=== PATIENT | female | born 1950 | race Caucasian/White ===

== ENCOUNTER → 2016-03-19 | Outpatient (CLI) | payer MEDICAID ==
[~2016-03-19] MED LIST: 00186-0370-20 IH; ANTIVERT 12.512.5 MG PO; ASPIRIN 81M81 MG/TA2 PO; ASPIRIN E.C. 8181 MG PO; BYSTOLIC10 MG PO; CARAFATE 1GM1 G PO; CLARITIN 1010 MG/TAB PO; CLARITIN10 MG PO; COREG 25MG25 MG/TAB PO; COREG CR10 MG PO; COZAAR 50MG50 MG/TAB PO; DEMADEX 20MG20 M1 PO; DESYREL 50MG50 MG PO; FLEXERIL 1010 MG/TAB PO; GLIPIZIDE10 MG PO; GLUCOPHAGE1000 MG PO; GLUCOTROL XL2.5 MG PO; GLYCOLAX17 GM/PACK PO; GYNODIOL1 MG PO; INDOCIN25 MG PO; JANUVIA 100MG100 MG PO; K-DUR 10 MEQ T10 MEQ PO; KLOR-CON M2020 MEQ PO; LASIX 20MG TABL20 MG PO; LASIX 40MG TABL40 MG PO; LEVEMIR FLEXPEN SC; LEVEMIR FLEXPEN SQ; LEVEMIR100 U/ML SC; LEVOTHYROXINE0.1 MG PO; LEVOXYL0.1 MG PO; LIPITOR 10MG10 MG PO; LOPRESSOR 550 MG/TAB PO; METFORMIN1000 MG PO; METOPROLOL50 MG PO; MIDAMOR 5MG TAB5 MG PO; MYCOSTATIN100000 U/1 TP; NITROSTAT0.4 MG/TAB SL; NORCO 325 MG-51 TAB PO; NORCO 325 MG-7.1 TAB PO; NORVASC 5MG5 MG/TAB PO; NYSTATIN CREAM15 GM TP; PERCOCET 325 MG1 TA2 PO; PERCR 7.5 PO; PREDNISONE10 MG PO; PREDNISONE20 MG PO; PREVACID 30MG30 M1 PO; PREVACID SOLUTA30 M2 PO; PRILOSEC20 MG PO; PRINIVIL10 MG PO; PROAIR HFA0.09 MG/AC IH; PROVENTIL0.09 MG/A1 IH; PROVERA 2.5MG2.5 MG PO; SEPTRA DS 8001 TAB PO; SYNTHROID0.1 MG/TAB PO; TRIAMTERENE AND1 TAB PO; VENTOLIN0.09 MG IH; ZITHROMAX Z PA250 MG PO; ZOCOR 20MG20 MG PO; ZOFRAN 4MG T4 MG/TAB PO; ZYLOPRIM 300MG300 MG; ZYLOPRIM 300MG300 MG PO; ZYRTEC 10MG10 MG PO; [UNRECOGNIZED DRUG - REMARK] PO
== END ==
LOC: COL.RAD 08:15
DX: N18.3 Chronic kidney disease, stage 3 (moderate) (principal)

== ENCOUNTER 2016-04-25 02:00 | Emergency (ER) | payer MEDICAID ==
[~2016-04-25] VITALS: Ht 154.9 cm; Wt 136.4 kg
[2016-04-25 02:03] VITALS: TEMP 99.1
[2016-04-25 02:45] LABS: BASO % 0.3 % (0.0-2.0); EOS % 0.2 % (0-4.0); GRAN % 69.2 % (42.2-75.2); LYMPH # 1.1 (1.2-3.4); LYMPH % 18.8 % (20.0-51.0); MEAN CELL VOLUME 93 fl (80.0-100.0); MEAN CORPUSCULAR HGB CONC 33 g/dl (33.0-37.0); MEAN PLATELET VOLUME 9.7 fl (7.4-10.4); MONO # 0.6 (0.1-0.6); MONO % 10.8 % (1.7-9.3); PLATELET COUNT 99 K/mm3 (130-400); RED BLOOD COUNT 3.84 M/mm3 (4.10-5.30); REDCELL DISTRIBUTION WIDTH-CV 14.6 % (11.5-14.5); WHITE BLOOD COUNT 5.8 K/mm3 (4.8-10.8)
[2016-04-25 02:52] LABS: INFLUENZA B NEGATIVE
[2016-04-25 02:52] LABS: HEMATOCRIT 35.7 % (37.0-47.0); HEMOGLOBIN 11.8 g/dl (12.5-16.0); MEAN CORPUSCULAR HEMOGLOBIN 31 pg (27.0-31.0)
[2016-04-25 02:55] LABS: ADJUSTED CALCIUM 9.2 mg/dL (8.4-10.2); ALBUMIN 3.8 gm/dL (3.5-5.0); CREATININE, serum 1.63 mg/dL (0.52-1.25); POTASSIUM 3.8 mmol/L (3.4-5.0)
[2016-04-25 03:27] VITALS: BP 144/80; PULSE 85
== END 2016-04-25 03:27 | disposition home or self-care (01) ==
LOC: COL.ER 02:00
PROVIDERS: Nurse Practitioner
DX: J44.9 Chronic obstructive pulmonary disease, unspecified (principal); J45.909 Unspecified asthma, uncomplicated; E11.9 Type 2 diabetes mellitus without complications; Z79.4 Long term (current) use of insulin; I11.0 Hypertensive heart disease with heart failure; I50.9 Heart failure, unspecified; Z87.891 Personal history of nicotine dependence

== ENCOUNTER 2016-05-20 14:41 | Emergency (ER) | payer MEDICARE, MEDICAID ==
[~2016-05-20] VITALS: Ht 157.5 cm; Wt 129.5 kg
[2016-05-20 14:52] VITALS: TEMP 98.2
[2016-05-20 15:59] LABS: BASO % 0.5 % (0.0-2.0); EOS % 0.2 % (0-4.0); GRAN # 4.5 (1.4-6.5); LYMPH # 1.2 (1.2-3.4); LYMPH % 19.4 % (20.0-51.0); MEAN CELL VOLUME 93 fl (80.0-100.0); MEAN CORPUSCULAR HGB CONC 34 g/dl (33.0-37.0); MONO # 0.5 (0.1-0.6); MONO % 8.4 % (1.7-9.3); PLATELET COUNT 103 K/mm3 (130-400); RED BLOOD COUNT 3.74 M/mm3 (4.10-5.30); REDCELL DISTRIBUTION WIDTH-CV 14.6 % (11.5-14.5); WHITE BLOOD COUNT 6.3 K/mm3 (4.8-10.8)
[2016-05-20 16:00] LABS: HEMATOCRIT 34.9 % (37.0-47.0); HEMOGLOBIN 11.7 g/dl (12.5-16.0); MEAN CORPUSCULAR HEMOGLOBIN 31 pg (27.0-31.0)
[2016-05-20 16:09] LABS: CREATININE, serum 1.85 mg/dL (0.52-1.25); POTASSIUM 3.3 mmol/L (3.4-5.0)
[2016-05-20 18:12] VITALS: BP 128/57; PULSE 75
== END 2016-05-20 18:05 | disposition home or self-care (01) ==
LOC: COL.ER 14:41
PROVIDERS: Emergency Medicine
DX: M48.02 Spinal stenosis, cervical region (principal); F41.9 Anxiety disorder, unspecified; E87.6 Hypokalemia; E11.9 Type 2 diabetes mellitus without complications; I10 Essential (primary) hypertension; Z79.4 Long term (current) use of insulin; Z87.891 Personal history of nicotine dependence
CPT/HCPCS: J1170; J2060; J2765; J7030

== ENCOUNTER → 2016-06-14 | Outpatient (CLI) | payer MEDICARE, MEDICAID | LOC: MC.RAD 13:31 | DX: Z53.9 Procedure and treatment not carried out, unspecified reason (principal) ==

== ENCOUNTER → 2016-06-21 | Outpatient (CLI) | payer MEDICARE, MEDICAID | LOC: MC.RAD 11:32 | DX: Z12.31 Encounter for screening mammogram for malignant neoplasm of breast (principal) ==

== ENCOUNTER → 2016-06-26 | Outpatient (CLI) | payer MEDICARE, MEDICAID | LOC: MC.RAD 10:57 | DX: N64.89 Other specified disorders of breast (principal) ==

== ENCOUNTER 2016-07-16 12:30 | Outpatient (RCR) | payer MEDICARE, MEDICAID | END 2016-09-03 | disposition home or self-care (01) | LOC: WSPT | DX: M54.2 Cervicalgia (principal) ==

== ENCOUNTER 2016-11-27 16:07 | Inpatient (IN) | payer MEDICARE, MEDICAID ==
[~2016-11-27] VITALS: Ht 157.5 cm; Wt 131.7 kg
[2016-11-27 17:11] LABS: PH 7 (5-8); SQUAMOUS EPITHELIAL 0-2 /hpf; URINE APPEARANCE Clear; URINE BACTERIA None Seen /hpf; URINE BILIRUBIN Negative (NEGATIVE); URINE BLOOD Negative (NEGATIVE); URINE COLOR Yellow; URINE GLUCOSE Negative (NEGATIVE); URINE KETONE Negative (NEGATIVE); URINE RBC 0-2 /hpf; URINE UROBILINOGEN Negative (NEGATIVE); URINE WBC 0-2 /hpf
[2016-11-27] MEDS ORDERED: NEURONTIN300 MG/CAP PO (17:42)
[2016-11-27 17:43] LABS: BASO % 0.4 % (0.0-2.0); GRAN # 8.3 (1.4-6.5); GRAN % 84.4 % (42.2-75.2); HEMATOCRIT 39.5 % (37.0-47.0); HEMOGLOBIN 13.7 g/dl (12.5-16.0); LYMPH # 0.8 (1.2-3.4); LYMPH % 8.4 % (20.0-51.0); MEAN CELL VOLUME 95 fl (80.0-100.0); MEAN CORPUSCULAR HEMOGLOBIN 33 pg (27.0-31.0); MEAN CORPUSCULAR HGB CONC 35 g/dl (33.0-37.0); MEAN PLATELET VOLUME 9.7 fl (7.4-10.4); MONO # 0.6 (0.1-0.6); MONO % 6.2 % (1.7-9.3); PLATELET COUNT 101 K/mm3 (130-400); RED BLOOD COUNT 4.15 M/mm3 (4.10-5.30); REDCELL DISTRIBUTION WIDTH-CV 13.8 % (11.5-14.5); WHITE BLOOD COUNT 9.8 K/mm3 (4.8-10.8)
[2016-11-27] MEDS ORDERED: ZYLOPRIM 100MG100 MG PO (17:45)
[2016-11-27] MEDS ORDERED: K-TAB10 (17:45)
[2016-11-27] MEDS ORDERED: ZYRTEC 10MG10 MG PO (17:45)
[2016-11-27] MEDS ORDERED: COZAAR 50MG50 MG/TAB PO (17:45)
[2016-11-27 17:53] LABS: ADJUSTED CALCIUM 9.1 mg/dL (8.4-10.2); ALBUMIN 4.2 gm/dL (3.5-5.0); BILIRUBIN,TOTAL 1.2 mg/dL (0.0-1.0); CALCIUM 9.3 mg/dL (8.4-10.2); CREATININE, serum 1.8 mg/dL (0.52-1.25); POTASSIUM 3.6 mmol/L (3.4-5.0); TOTAL PROTEIN 7.9 gm/dL (6.4-8.2)
[2016-11-27 18:06] LABS: TROPONIN-I 0.032 ng/mL (0.000-0.034)
[2016-11-27 20:18] LABS: INFLUENZA B NEGATIVE
[2016-11-27 21:02] VITALS: BP 120/83; PULSE 91; TEMP 99.4
[2016-11-28] VITALS (7 sets, daily range): BP systolic 87–143; BP diastolic 44–79; PULSE 62–86; TEMP 97.2–101.2
[2016-11-28 10:12] LABS: CALCIUM 8.9 mg/dL (8.4-10.2); CREATININE, serum 1.89 mg/dL (0.52-1.25); POTASSIUM 3.2 mmol/L (3.4-5.0)
[2016-11-28 10:18] LABS: BASO % 0.3 % (0.0-2.0); GRAN # 7.3 (1.4-6.5); GRAN % 76.8 % (42.2-75.2); HEMOGLOBIN 12.2 g/dl (12.5-16.0); LYMPH # 1.3 (1.2-3.4); LYMPH % 13.5 % (20.0-51.0); MEAN CELL VOLUME 97 fl (80.0-100.0); MEAN CORPUSCULAR HEMOGLOBIN 33 pg (27.0-31.0); MEAN CORPUSCULAR HGB CONC 34 g/dl (33.0-37.0); MEAN PLATELET VOLUME 10.9 fl (7.4-10.4); MONO # 0.9 (0.1-0.6); MONO % 8.9 % (1.7-9.3); PLATELET COUNT 91 K/mm3 (130-400); RED BLOOD COUNT 3.68 M/mm3 (4.10-5.30); WHITE BLOOD COUNT 9.6 K/mm3 (4.8-10.8)
[2016-11-28 10:19] LABS: HEMATOCRIT 35.7 % (37.0-47.0)
[2016-11-29 04:24] VITALS: BP 108/50; PULSE 74; TEMP 99.2
[2016-11-29 07:36] VITALS: BP 112/55; PULSE 77; TEMP 99.2
[2016-11-29 08:41] LABS: ADD PATHOLOGY DIFF REVIEW NO
[2016-11-29 10:15] LABS: MEAN CELL VOLUME 98 fl (80.0-100.0); MEAN CORPUSCULAR HGB CONC 33 g/dl (33.0-37.0); MEAN PLATELET VOLUME 10.9 fl (7.4-10.4); PLATELET COUNT 97 K/mm3 (130-400); RED BLOOD COUNT 3.59 M/mm3 (4.10-5.30); WHITE BLOOD COUNT 6.9 K/mm3 (4.8-10.8)
[2016-11-29 10:17] LABS: HEMATOCRIT 35.2 % (37.0-47.0); HEMOGLOBIN 11.7 g/dl (12.5-16.0); MEAN CORPUSCULAR HEMOGLOBIN 33 pg (27.0-31.0)
[2016-11-29 10:23] LABS: ADJUSTED CALCIUM 8.9 mg/dL (8.4-10.2); ALBUMIN 3.4 gm/dL (3.5-5.0); BILIRUBIN,TOTAL 0.8 mg/dL (0.0-1.0); CALCIUM 8.4 mg/dL (8.4-10.2); CREATININE, serum 1.97 mg/dL (0.52-1.25); MAGNESIUM 1.5 mg/dL (1.6-2.3); POTASSIUM 4.7 mmol/L (3.4-5.0); TOTAL PROTEIN 6.7 gm/dL (6.4-8.2)
[2016-11-29 10:55] LABS: C-REACTIVE PROTEIN 10.8 mg/dL (0.0-0.9)
[2016-11-29 11:05] LABS: BAND 24 % (0-10); METAMYELOCYTE 3 % (0-0); MYELOCYTE 1 % (0-0); NEUTROPHILS 54 % (42.0-75.2); PLATELET ESTIMATE DECREASED (NORMAL); TOTAL CELLS COUNTED 100
[2016-11-29 11:06] VITALS: BP 98/54; PULSE 65; TEMP 98.6
[2016-11-29] MEDS ORDERED: COZAAR 50MG50 MG/TAB PO (13:44)
[2016-11-29] MEDS ORDERED: DEMADEX 20MG20 M1 PO (13:45)
== END 2016-11-29 14:44 | disposition home health service (06) | DRG 864 ==
LOC: COL.ER 16:07 → MEDICAL 19:32
PROVIDERS: Emergency Medicine; Family Medicine; Internal Medicine
DX: R50.9 Fever, unspecified (principal); Z68.43 Body mass index [BMI] 50.0-59.9, adult; E87.2 Acidosis; I12.9 Hypertensive chronic kidney disease with stage 1 through stage 4 chronic kidney disease, or unspecified chronic kidney disease; E11.22 Type 2 diabetes mellitus with diabetic chronic kidney disease; N18.9 Chronic kidney disease, unspecified; I25.10 Atherosclerotic heart disease of native coronary artery without angina pectoris; M79.7 Fibromyalgia; E66.01 Morbid (severe) obesity due to excess calories
CPT/HCPCS: 99223-AI; 99232-AI; 99239; G8987-GO; G8988-GO; J0696; J1644; J1815; J2405; J3010; J3480; J7030; J7040

== ENCOUNTER → 2016-12-30 | Outpatient (CLI) | payer MEDICARE, MEDICAID ==
[~2016-12-30] MED LIST changes: +K-TAB10; +NEURONTIN300 MG/CAP PO; +ZYLOPRIM 100MG100 MG PO
== END ==
LOC: MC.RAD 08:23
DX: N63.21 Unspecified lump in the left breast, upper outer quadrant (principal)

== ENCOUNTER 2017-01-08 13:13 | Inpatient (IN) | payer MEDICARE, MEDICAID ==
[~2017-01-08] VITALS: Ht 157.5 cm; Wt 123.3 kg
[2017-01-08 18:42] VITALS: BP 145/95; PULSE 69; TEMP 98.3
[2017-01-09] MEDS ORDERED: LEVEMIR FLEX100 U/ML SQ (03:01)
[2017-01-09] MEDS ORDERED: DEMADEX 20MG20 M1 PO (03:03)
[2017-01-09] MEDS ORDERED: JANUVIA50 MG PO (03:03)
[2017-01-09] MEDS ORDERED: PROVENTIL0.09 MG/A1 IH (03:05)
[2017-01-09] MEDS ORDERED: IPRATROPIUM BROM3 M1 IH (03:06)
[2017-01-09] MEDS ORDERED: NORVASC 5MG5 MG/TAB PO (03:07)
[2017-01-09] MEDS ORDERED: FLEXERIL 1010 MG/TAB PO (03:08)
[2017-01-09] MEDS ORDERED: GLUCOSE TEST ST1 DEV MC (03:08)
[2017-01-09] MEDS ORDERED: ZAROXOLYN 2.52.5 MG PO (03:10)
[2017-01-09] MEDS ORDERED: NYAMYC100000 U/G TP (03:11)
[2017-01-09] MEDS ORDERED: NYSTATIN POWDER15 GM TOP (03:12)
[2017-01-09] MEDS ORDERED: ZOFRAN ODT4 MG PO (03:13)
[2017-01-09] MEDS ORDERED: PERCOCET 325 MG1 TA2 PO (03:14)
[2017-01-09] MEDS ORDERED: PROTONIX 40MG T40 MG PO (03:15)
[2017-01-09] MEDS ORDERED: MIRALAX PA17 GM/Dose PO (03:16)
[2017-01-09] MEDS ORDERED: K-DUR 10 MEQ T10 MEQ PO (03:17)
[2017-01-09] MEDS ORDERED: PHENERGAN 25 TA25 MG PO (03:18)
[2017-01-09] MEDS ORDERED: DEEP SEA 45 ML45 ML NS (03:19)
[2017-01-09] MEDS ORDERED: SPIRIVA RE2.5 MCG/Ac IH (03:21)
[2017-01-09] MEDS ORDERED: DESYREL 50MG50 MG PO (03:22)
[2017-01-09 06:08] VITALS: BP 112/47; PULSE 81; TEMP 98
[2017-01-09 07:50] LABS: CREATININE, serum 1.65 mg/dL (0.52-1.25)
[2017-01-09 12:33] VITALS: BP 109/71; PULSE 66
[2017-01-09 18:14] VITALS: BP 96/55; PULSE 65; TEMP 97.7
[2017-01-10 05:04] VITALS: BP 118/45; PULSE 71; TEMP 98.1
[2017-01-10 07:26] LABS: MEAN CELL VOLUME 99 fl (80.0-100.0); MEAN CORPUSCULAR HGB CONC 33 g/dl (33.0-37.0); PLATELET COUNT 110 K/mm3 (130-400); RED BLOOD COUNT 3.03 M/mm3 (4.10-5.30); WHITE BLOOD COUNT 4.5 K/mm3 (4.8-10.8)
[2017-01-10 07:30] LABS: MEAN CORPUSCULAR HEMOGLOBIN 33 pg (27.0-31.0)
[2017-01-10 07:31] LABS: ADD PATHOLOGY DIFF REVIEW NO
[2017-01-10 07:39] LABS: CALCIUM 8.9 mg/dL (8.4-10.2); CREATININE, serum 1.78 mg/dL (0.52-1.25); POTASSIUM 3.9 mmol/L (3.4-5.0)
[2017-01-10 07:56] LABS: BAND 1 % (0-10); LYMPHOCYTE 37 % (20.0-51.0); NEUTROPHILS 53 % (42.0-75.2); TOTAL CELLS COUNTED 100
[2017-01-10 07:57] LABS: PLATELET ESTIMATE DECREASED (NORMAL)
[2017-01-10 15:40] VITALS: BP 103/60; PULSE 72; TEMP 97.5
[2017-01-11 05:54] VITALS: BP 117/45; PULSE 69; TEMP 98.5
[2017-01-11 09:17] LABS: CREATININE, serum 1.88 mg/dL (0.52-1.25)
[2017-01-11 15:53] VITALS: BP 133/53; PULSE 76; TEMP 98
[2017-01-12 06:16] VITALS: BP 143/61; PULSE 70; TEMP 98.5
[2017-01-12 16:29] VITALS: BP 128/56; PULSE 65; TEMP 97.9
[2017-01-13 05:25] VITALS: BP 101/50; PULSE 64; TEMP 97.8
[2017-01-13 07:12] LABS: ADD PATHOLOGY DIFF REVIEW NO
[2017-01-13 07:28] LABS: CALCIUM 9.7 mg/dL (8.4-10.2); CREATININE, serum 1.95 mg/dL (0.52-1.25); MAGNESIUM 1.9 mg/dL (1.6-2.3); POTASSIUM 4.5 mmol/L (3.4-5.0)
[2017-01-13 07:31] LABS: MEAN CELL VOLUME 99 fl (80.0-100.0); MEAN CORPUSCULAR HGB CONC 33 g/dl (33.0-37.0); MEAN PLATELET VOLUME 9.8 fl (7.4-10.4); PLATELET COUNT 142 K/mm3 (130-400); WHITE BLOOD COUNT 4.5 K/mm3 (4.8-10.8)
[2017-01-13 07:34] LABS: HEMATOCRIT 30.8 % (37.0-47.0); HEMOGLOBIN 10.2 g/dl (12.5-16.0); MEAN CORPUSCULAR HEMOGLOBIN 33 pg (27.0-31.0)
[2017-01-13 08:45] LABS: BAND 3 % (0-10); LYMPHOCYTE 31 % (20.0-51.0); NEUTROPHILS 60 % (42.0-75.2); PLATELET ESTIMATE NORMAL (NORMAL); TOTAL CELLS COUNTED 100
[2017-01-13 08:46] LABS: HYPOCHROMIA 1+
[2017-01-13 16:26] VITALS: BP 137/70; PULSE 71; TEMP 98.4
[2017-01-14 05:20] VITALS: BP 104/49; PULSE 66; TEMP 98.5
[2017-01-14 15:32] VITALS: BP 123/71; PULSE 73; TEMP 98.4
[2017-01-15 03:23] VITALS: BP 122/51; PULSE 71; TEMP 97.7
[2017-01-15 07:17] LABS: CALCIUM 9.9 mg/dL (8.4-10.2); CREATININE, serum 1.92 mg/dL (0.52-1.25); POTASSIUM 4.7 mmol/L (3.4-5.0)
[2017-01-15] MEDS ORDERED: COZAAR 25MG25 MG/TAB PO (12:55)
[2017-01-15] MEDS ORDERED: DEMADEX10 MG PO (12:56)
[2017-01-15] MEDS ORDERED: MIDAMOR 5MG TAB5 MG PO (12:56)
[2017-01-15] MEDS ORDERED: HYDROCORTISONE30 G3 TP (12:58)
[2017-01-15 15:34] VITALS: BP 123/54; PULSE 69; TEMP 98
== END 2017-01-15 18:00 | disposition home health service (06) | DRG 947 ==
PROVIDERS: Family Medicine; Internal Medicine
DX: R53.81 Other malaise (principal); A41.9 Sepsis, unspecified organism; L03.317 Cellulitis of buttock; Z68.42 Body mass index [BMI] 45.0-49.9, adult; I12.9 Hypertensive chronic kidney disease with stage 1 through stage 4 chronic kidney disease, or unspecified chronic kidney disease; E11.22 Type 2 diabetes mellitus with diabetic chronic kidney disease; N18.3 Chronic kidney disease, stage 3 (moderate); J44.9 Chronic obstructive pulmonary disease, unspecified; I25.10 Atherosclerotic heart disease of native coronary artery without angina pectoris; M79.7 Fibromyalgia; L89.322 Pressure ulcer of left buttock, stage 2; L89.312 Pressure ulcer of right buttock, stage 2; Z87.891 Personal history of nicotine dependence; E66.01 Morbid (severe) obesity due to excess calories; I89.0 Lymphedema, not elsewhere classified
CPT/HCPCS: 99222-AI; 99232-AI; 99239; J1644; J1815; J3370; J7050

== ENCOUNTER → 2017-02-28 | Outpatient (CLI) | payer MEDICARE, MEDICAID ==
[~2017-02-28] MED LIST changes: +COZAAR 25MG25 MG/TAB PO; +DEEP SEA 45 ML45 ML NS; +DEMADEX10 MG PO; +GLUCOSE TEST ST1 DEV MC; +HYDROCORTISONE30 G3 TP; +IPRATROPIUM BROM3 M1 IH; +JANUVIA50 MG PO; +LEVEMIR FLEX100 U/ML SQ; +MIRALAX PA17 GM/Dose PO; +NYAMYC100000 U/G TP; +NYSTATIN POWDER15 GM TOP; +PHENERGAN 25 TA25 MG PO; +PROTONIX 40MG T40 MG PO; +SPIRIVA RE2.5 MCG/Ac IH; +ZAROXOLYN 2.52.5 MG PO; +ZOFRAN ODT4 MG PO
== END ==
LOC: COL.RAD 02-20 11:30
DX: M48.07 Spinal stenosis, lumbosacral region (principal); M47.817 Spondylosis without myelopathy or radiculopathy, lumbosacral region

== ENCOUNTER → 2017-05-08 | Outpatient (CLI) | payer MEDICARE, MEDICAID ==
[2017-05-08 16:01] LABS: HEMOGLOBIN 12.1 g/dl (12.5-16.0); MEAN CELL VOLUME 97 fl (80.0-100.0); MEAN CORPUSCULAR HEMOGLOBIN 32 pg (27.0-31.0); MEAN CORPUSCULAR HGB CONC 34 g/dl (33.0-37.0); MEAN PLATELET VOLUME 10.1 fl (7.4-10.4); PLATELET COUNT 136 K/mm3 (130-400); RED BLOOD COUNT 3.73 M/mm3 (4.10-5.30); REDCELL DISTRIBUTION WIDTH-CV 13.3 % (11.5-14.5)
[2017-05-08 16:02] LABS: HEMATOCRIT 36.1 % (37.0-47.0)
[2017-05-08 16:14] LABS: BAND 3 % (0-10); LYMPHOCYTE 12 % (20.0-51.0); NEUTROPHILS 84 % (42.0-75.2); PLATELET ESTIMATE DECREASED (NORMAL)
[2017-05-08 16:52] LABS: ERYTHROCYTE SEDIMENTATION RATE 42 mm/hr (0-30)
== END ==
LOC: COL.LAB 15:24
PROVIDERS: Nurse Practitioner
DX: Z47.89 Encounter for other orthopedic aftercare (principal); M25.561 Pain in right knee; Z96.651 Presence of right artificial knee joint

== ENCOUNTER 2017-05-09 14:45 | Outpatient (RCR) | payer MEDICARE, MEDICAID | END 2017-05-13 | disposition home or self-care (01) | LOC: WSPT | DX: M15.0 Primary generalized (osteo)arthritis (principal); R29.898 Other symptoms and signs involving the musculoskeletal system; M54.42 Lumbago with sciatica, left side; M54.41 Lumbago with sciatica, right side; G89.29 Other chronic pain | CPT/HCPCS: G8978-GP; G8979-GP; G8987-GO; G8988-GO; G8989-GO ==

== ENCOUNTER 2017-05-27 14:45 | Outpatient (RCR) | payer MEDICARE, MEDICAID | END 2017-06-07 08:09 | disposition home or self-care (01) | LOC: WSPT 14:45 | DX: M15.0 Primary generalized (osteo)arthritis (principal); M17.12 Unilateral primary osteoarthritis, left knee; M48.00 Spinal stenosis, site unspecified; M54.5 Low back pain | CPT/HCPCS: G8978-GP; G8979-GP; G8980-GP ==

== ENCOUNTER → 2017-06-30 | Outpatient (CLI) | payer MEDICARE, MEDICAID | LOC: MC.RAD 13:00 | DX: N64.89 Other specified disorders of breast (principal); M89.8X8 Other specified disorders of bone, other site ==

== ENCOUNTER → 2017-09-02 | Outpatient (CLI) | payer MEDICARE, MEDICAID ==
[~2017-09-02] VITALS: Ht 154.9 cm; Wt 106.4 kg
[2017-09-02 13:37] VITALS: BP 110/50; PULSE 64
== END ==
LOC: LIGHT 13:09
DX: E11.65 Type 2 diabetes mellitus with hyperglycemia (principal); E66.01 Morbid (severe) obesity due to excess calories; Z68.41 Body mass index [BMI] 40.0-44.9, adult; Z71.3 Dietary counseling and surveillance; I10 Essential (primary) hypertension; G47.33 Obstructive sleep apnea (adult) (pediatric)

== ENCOUNTER 2018-03-11 15:00 | Outpatient (RCR) | payer MEDICARE, MEDICAID | END 2018-04-01 | disposition home or self-care (01) | LOC: WSPT | DX: M54.2 Cervicalgia (principal) | CPT/HCPCS: G8978-GP; G8979-GP ==

== ENCOUNTER 2018-06-11 14:45 | Outpatient (RCR) | payer MEDICARE, MEDICAID | END 2018-08-14 10:43 | disposition home or self-care (01) | LOC: WSPT 14:45 | DX: M25.511 Pain in right shoulder (principal); G89.29 Other chronic pain ==

== ENCOUNTER 2019-03-17 02:41 | Emergency (ER) | payer MEDICARE, MEDICAID ==
[~2019-03-17] VITALS: Ht 154.9 cm; Wt 120.5 kg
[2019-03-17 02:46] VITALS: BP 146/71; TEMP 98.8
[2019-03-17 05:10] VITALS: PULSE 79
== END 2019-03-17 05:10 | disposition home or self-care (01) ==
LOC: COL.ER 02:41
DX: S80.02XA Contusion of left knee, initial encounter (principal); Z79.82 Long term (current) use of aspirin; W19.XXXA Unspecified fall, initial encounter; Y92.009 Unspecified place in unspecified non-institutional (private) residence as the place of occurrence of the external cause

== ENCOUNTER 2019-05-01 03:27 | Emergency (ER) | payer MEDICARE, MEDICAID ==
[~2019-05-01] VITALS: Ht 157.5 cm; Wt 122.7 kg
[2019-05-01 03:30] VITALS: BP 132/70; TEMP 97.2
[2019-05-01 05:02] VITALS: PULSE 58
== END 2019-05-01 05:02 | disposition home or self-care (01) ==
LOC: COL.ER 03:27
DX: S80.02XA Contusion of left knee, initial encounter (principal); S80.01XA Contusion of right knee, initial encounter; I10 Essential (primary) hypertension; E11.9 Type 2 diabetes mellitus without complications; Z79.82 Long term (current) use of aspirin; Z79.4 Long term (current) use of insulin; W19.XXXA Unspecified fall, initial encounter; Y92.009 Unspecified place in unspecified non-institutional (private) residence as the place of occurrence of the external cause

== ENCOUNTER 2019-05-14 12:16 | Inpatient (IN) | payer MEDICARE, MEDICAID ==
[~2019-05-14] VITALS: Ht 154.9 cm; Wt 122.9 kg
[2019-05-14] MEDS ORDERED: KLOR-CON 1010 MEQ PO (13:09)
[2019-05-14] MEDS ORDERED: CALCITRIOL PO (13:15)
[2019-05-14] MEDS ORDERED: VOLTAREN GEL 1%1 TU TOP (13:17)
[2019-05-14 13:25] VITALS: BP 136/65; PULSE 63; TEMP 99.1
[2019-05-14 16:25] LABS: BASO # 0.1 (0.0-0.2); BASO % 1.1 % (0.0-2.0); EOS # 0.2 (0.0-0.7); EOS % 3.3 % (0-4.0); GRAN % 54.7 % (42.2-75.2); HEMATOCRIT 39.9 % (37.0-47.0); HEMOGLOBIN 13.5 g/dl (12.5-16.0); LYMPH # 1.7 (1.2-3.4); LYMPH % 31.3 % (20.0-51.0); MEAN CELL VOLUME 95 fl (80.0-100.0); MEAN CORPUSCULAR HEMOGLOBIN 32 pg (27.0-31.0); MEAN CORPUSCULAR HGB CONC 34 g/dl (33.0-37.0); MEAN PLATELET VOLUME 10.4 fl (7.4-10.4); MONO # 0.5 (0.1-0.6); MONO % 9.1 % (1.7-9.3); PLATELET COUNT 118 K/mm3 (130-400); REDCELL DISTRIBUTION WIDTH-CV 13.7 % (11.5-14.5)
[2019-05-14 16:32] LABS: ALBUMIN 4.5 gm/dL (3.5-5.0); BILIRUBIN,TOTAL 0.8 mg/dL (0.0-1.0); CALCIUM 9.8 mg/dL (8.4-10.2); CREATININE, serum 2.06 (0.52-1.25); MAGNESIUM 1.8 mg/dL (1.6-2.3); PHOSPHOROUS 3.1 mg/dL (2.5-4.5); POTASSIUM 3.1 mmol/L (3.4-5.0)
[2019-05-14 18:25] LABS: COLLECTION METHOD CLEAN CATCH
[2019-05-14 18:41] LABS: PH 7 (5-8); URINE APPEARANCE Clear; URINE BACTERIA Rare /hpf; URINE BILIRUBIN Negative (NEGATIVE); URINE BLOOD Negative (NEGATIVE); URINE COLOR Straw; URINE GLUCOSE Negative (NEGATIVE); URINE KETONE Negative (NEGATIVE); URINE LEUKOCYTE ESTERASE Negative (NEGATIVE); URINE NITRATE Negative (NEGATIVE); URINE PROTEIN(semi-quant) Negative (NEGATIVE); URINE RBC None Seen /hpf; URINE UROBILINOGEN Negative (NEGATIVE)
--- NOTE | 2019-05-14 20:30 | NUR ---
Initial shift assessment done- states having some arthritis pain , also right arm pain--will give Tylenol before bed-not time for percocet. Tele on. SCD,s put on patient per orders, Up to BSC with assist. Sister staying the night tonight with patient.
[2019-05-14 21:29] VITALS: BP 135/56; PULSE 64; TEMP 98.2
[2019-05-15] VITALS (7 sets, daily range): BP systolic 92–140; BP diastolic 48–70; PULSE 54–73; TEMP 97.6–98.3
--- NOTE | 2019-05-15 04:56 | NUR ---
Did get a couple hours of sleep during the night-- requesting pain med for arm,joints at this time but was just given a Percocet 2 hours ago-- will offer plain Tylenol. VSS Tele on---Has been up to BSC at least 4 times during the night, voiding small amounts.
[2019-05-15 06:50] LABS: BASO % 0.7 % (0.0-2.0); EOS # 0.2 (0.0-0.7); EOS % 3.6 % (0-4.0); GRAN # 2.8 (1.4-6.5); GRAN % 52.4 % (42.2-75.2); HEMOGLOBIN 11.7 g/dl (12.5-16.0); LYMPH # 1.7 (1.2-3.4); LYMPH % 31.1 % (20.0-51.0); MEAN CELL VOLUME 96 fl (80.0-100.0); MEAN CORPUSCULAR HEMOGLOBIN 32 pg (27.0-31.0); MEAN CORPUSCULAR HGB CONC 33 g/dl (33.0-37.0); MEAN PLATELET VOLUME 10.2 fl (7.4-10.4); MONO # 0.6 (0.1-0.6); PLATELET COUNT 108 K/mm3 (130-400); RED BLOOD COUNT 3.68 M/mm3 (4.10-5.30); REDCELL DISTRIBUTION WIDTH-CV 13.7 % (11.5-14.5)
[2019-05-15 06:56] LABS: HEMATOCRIT 35.2 % (37.0-47.0)
[2019-05-15 07:00] LABS: ALBUMIN 3.7 gm/dL (3.5-5.0); CALCIUM 9.6 mg/dL (8.4-10.2); CREATININE, serum 2.03 (0.52-1.25); PHOSPHOROUS 4.2 mg/dL (2.5-4.5)
--- NOTE | 2019-05-15 09:20 | NUR ---
PT SITTING IN RECLINER, A/O X4, WITH NO C/O PAIN OR DISCOMFORT AT THIS TIME. PT HAD FAMILY VISITING. PT DID NOT EAT MUCH OF HER BREAKFAST. PT HAS CALL LIGHT AND PERSONAL BELONGINGS WITHIN REACH.
--- NOTE | 2019-05-15 14:14 | NUR ---
Plan: Patient plans to return home with home health through [facility] and her sister Kristin Hdz , Robert . Assess: DPOA is and granddaughter Altagracia Winters . Patient reports that she has [facility], nurse is Stefania Steve. PCP is reported as Dr. Serna. RX is obtained from [facility]. Patient shares that use a walker daily, CPAP at night, but denies any other DME use. Action: Educated on supports and services. No additonal concerns reported.
--- NOTE | 2019-05-15 16:33 | NUR ---
PT HAD C/O CHEST PAIN AND HEART PALPATIONS. CALLED DR. BALDERAS AND ADVISED HIM OF HER CHEST PAIN AND HEART PALPATIONS, ALSO, THAT SHE DID NOT WANT TO GO THROUGH HEART CATH OR A CARDIAC WORKUP. DR. BALDERAS ORDERED ORTHOSTATIC BLOOD PRESSURES. LAYING 144/59, 64, SITTING 142/72, 64, STANDING 131/74, 65. CALLED DR. BALDERAS BACK AND HE ADVISED NO ACTION REQUIRED.
--- NOTE | 2019-05-15 19:05 | NUR ---
PT SITTING IN RECLINER, VISITING WITH HER . PT HAS NO NEEDS OR C/O ANYTHING AT THIS TIME. CALL LIGHT WITHIN REACH.
--- NOTE | 2019-05-15 20:42 | NUR ---
Initial shift assessment done- B/P rechecked 135/64 at this time, Has been up in chair for the afternoon, now up to bathroom with walker and assist, voided 300cc jin urine, back to bed, night meds given, requesting Miralax at this time - denies pain tonight
[2019-05-16 05:03] VITALS: BP 114/47; PULSE 65; TEMP 98.2
--- NOTE | 2019-05-16 06:00 | NUR ---
Did sleep for a few hours last night- did get a Percocet just once during the night for knee pain 08/10--states was effective. Up to BSC x3 during the night- now up sitting in recliner. No requests, VSS
[2019-05-16 06:30] LABS: BASO # 0.1 (0.0-0.2); EOS # 0.2 (0.0-0.7); EOS % 3.7 % (0-4.0); GRAN # 2.5 (1.4-6.5); GRAN % 50.8 % (42.2-75.2); HEMOGLOBIN 11.4 g/dl (12.5-16.0); LYMPH # 1.6 (1.2-3.4); LYMPH % 32.4 % (20.0-51.0); MEAN CELL VOLUME 97 fl (80.0-100.0); MEAN CORPUSCULAR HEMOGLOBIN 32 pg (27.0-31.0); MEAN CORPUSCULAR HGB CONC 33 g/dl (33.0-37.0); MEAN PLATELET VOLUME 10.3 fl (7.4-10.4); MONO # 0.6 (0.1-0.6); MONO % 11.9 % (1.7-9.3); PLATELET COUNT 97 K/mm3 (130-400); RED BLOOD COUNT 3.54 M/mm3 (4.10-5.30); REDCELL DISTRIBUTION WIDTH-CV 13.7 % (11.5-14.5)
[2019-05-16 06:37] LABS: ALBUMIN 3.5 gm/dL (3.5-5.0); CALCIUM 9.5 mg/dL (8.4-10.2); CREATININE, serum 2.12 (0.52-1.25); PHOSPHOROUS 3.6 mg/dL (2.5-4.5); POTASSIUM 3.6 mmol/L (3.4-5.0)
[2019-05-16 06:39] LABS: HEMATOCRIT 34.3 % (37.0-47.0)
[2019-05-16 07:40] VITALS: BP 108/46; PULSE 54; TEMP 97.7
--- NOTE | 2019-05-16 10:33 | NUR ---
Pt assessment completed and charted. Medications administered per MAY. Pt sitting in recliner, denies SOB, N/V/D, chest pain. Pt states she has general pain in knees and arms. Received percocet PRN last night and tylenol early this morning by maintenance supervisor 2nd shift, denies any need for pain medication at this time, informed to let this nurse know when/if she needs anything. Pt requesting miralax, received PRN per MAY. LWR INT IV flushes w/o complications. Breathing even and unlabored. No further needs at this time.
[2019-05-16 11:42] VITALS: BP 100/58; PULSE 57; TEMP 97.8
[2019-05-16 16:00] VITALS: BP 117/55; PULSE 58; TEMP 97.9
--- NOTE | 2019-05-16 17:20 | NUR ---
Pt has had uneventful day. Out in halls in with . Pt has not requested any pain medication or c/o any pain. No further needs.
[2019-05-16 19:27] VITALS: BP 111/50; PULSE 62; TEMP 98.2
--- NOTE | 2019-05-16 19:28 | NUR ---
Reports pain to legs 08/10. Medicated with Percocet at this time.
--- NOTE | 2019-05-16 20:30 | NUR ---
Reports good relief of pain with Percocet. Takes HS meds at this time. SL to left wrist intact.
--- NOTE | 2019-05-16 21:30 | NUR ---
Takes Trazodone for sleep.
[2019-05-16 23:19] VITALS: BP 100/46; PULSE 65; TEMP 98.7
--- NOTE | 2019-05-16 23:23 | NUR ---
Assisted to bathroom at this time, ambulates with rolling walker. Voids yellow urine, requires assist with dirk cares, no open areas noted to buttocks. Back to bed.
[2019-05-17 03:21] VITALS: BP 112/40; PULSE 60; TEMP 98
--- NOTE | 2019-05-17 04:00 | NUR ---
Up to chair at bedside. Denies needs at this time.
--- NOTE | 2019-05-17 06:00 | NUR ---
Takes AM meds without problem. Denies need for pain meds at this time.
[2019-05-17 06:37] LABS: BASO # 0.1 (0.0-0.2); EOS # 0.2 (0.0-0.7); EOS % 4.2 % (0-4.0); GRAN # 2.1 (1.4-6.5); GRAN % 43.5 % (42.2-75.2); HEMOGLOBIN 11.5 g/dl (12.5-16.0); LYMPH # 1.8 (1.2-3.4); LYMPH % 38.5 % (20.0-51.0); MEAN CELL VOLUME 96 fl (80.0-100.0); MEAN CORPUSCULAR HEMOGLOBIN 31 pg (27.0-31.0); MEAN CORPUSCULAR HGB CONC 33 g/dl (33.0-37.0); MEAN PLATELET VOLUME 10.7 fl (7.4-10.4); MONO # 0.6 (0.1-0.6); MONO % 12.6 % (1.7-9.3); PLATELET COUNT 101 K/mm3 (130-400); RED BLOOD COUNT 3.67 M/mm3 (4.10-5.30); REDCELL DISTRIBUTION WIDTH-CV 13.7 % (11.5-14.5)
[2019-05-17 06:50] LABS: HEMATOCRIT 35.3 % (37.0-47.0)
[2019-05-17 06:52] LABS: ALBUMIN 3.7 gm/dL (3.5-5.0); CALCIUM 9.5 mg/dL (8.4-10.2); CREATININE, serum 2.13 (0.52-1.25); PHOSPHOROUS 3.6 mg/dL (2.5-4.5); POTASSIUM 3.9 mmol/L (3.4-5.0)
--- NOTE | 2019-05-17 07:11 | NUR ---
bedside report to Laura TOWNSEND
[2019-05-17 08:26] VITALS: BP 122/50; PULSE 64; TEMP 98.2
--- NOTE | 2019-05-17 09:52 | NUR ---
Assessment complete. Alert and oriented. Pt in restroom, walked back to recliner well with her walker. States her lower legs are hurting her a little bit but she does not need any PRN pain medication. Lower extremities are very edematous and sensetive to touch. States she slept pretty well. no IV fluids running at this time. L upper arm restrict noted. No further needs at this time. Call light in reach.
[2019-05-17 12:25] VITALS: BP 106/51; PULSE 65; TEMP 98.7
--- NOTE | 2019-05-17 15:20 | NUR ---
ZACK contacted Yosvany at [facility] to confirm services. Yosvany reports that they do not have the patient. ZACK then met with the patient to update and to review discharge plan. The patient reports that she has private duty services from [facility], four hours a week. She states that they help her with housekeeping. She states that she is working with her casemanager through her insurance to get approval for more private duty hours. ZACK discussed home health services for prison. The patient reports that she is not interested in that at this time. The patient plans to return home with her family and resume private duty services from [facility] upon discharge. SW to continue to follow.
[2019-05-17 17:03] VITALS: BP 104/53; PULSE 60; TEMP 98
--- NOTE | 2019-05-17 18:22 | NUR ---
Pt had an uneventful day. States she was very tired most of the day. Complained of sweating in her abdominal creases and behind her knees. There was some redness in the crease of her knee. Desenex PRN was ordered after speaking with . Pain in her legs is a constant 6, PRN pain medication provided. No other needs were expressed at this time. Call light in reach .
[2019-05-17 19:44] VITALS: BP 128/65; PULSE 58; TEMP 98.2
--- NOTE | 2019-05-17 20:30 | NUR ---
Initial shift assessment done- denies pain at this time. Up to bathroom with walker and assist-voiding jin urine. Tele is DC,teresa per Dr Roman-- states pt will go home tomorrow. Understands will call for assistance to bathroom-
[2019-05-18 00:27] VITALS: BP 123/50; PULSE 57; TEMP 97.7
[2019-05-18 03:50] VITALS: BP 121/47; PULSE 56; TEMP 97.4
[2019-05-18 08:24] VITALS: BP 125/49; PULSE 59; TEMP 98
--- NOTE | 2019-05-18 09:36 | NUR ---
Pt assessment completed and charted. medications administered per MAR. Pt A&O, denies pain, dizziness, SOB, N/V/D. Breathing is even and unlabored. LWR INT IV flushes w/o complications. Pt denies any needs at this time, hoping for discharge later today.
[2019-05-18 10:08] LABS: BASO # 0.1 (0.0-0.2); BASO % 1.1 % (0.0-2.0); EOS # 0.1 (0.0-0.7); EOS % 2.9 % (0-4.0); GRAN # 2.4 (1.4-6.5); GRAN % 52.7 % (42.2-75.2); HEMATOCRIT 38.6 % (37.0-47.0); HEMOGLOBIN 12.7 g/dl (12.5-16.0); LYMPH # 1.5 (1.2-3.4); LYMPH % 34.2 % (20.0-51.0); MEAN CELL VOLUME 97 fl (80.0-100.0); MEAN CORPUSCULAR HEMOGLOBIN 32 pg (27.0-31.0); MEAN CORPUSCULAR HGB CONC 33 g/dl (33.0-37.0); MEAN PLATELET VOLUME 10.3 fl (7.4-10.4); MONO # 0.4 (0.1-0.6); MONO % 8.9 % (1.7-9.3); PLATELET COUNT 103 K/mm3 (130-400); RED BLOOD COUNT 3.98 M/mm3 (4.10-5.30); REDCELL DISTRIBUTION WIDTH-CV 13.6 % (11.5-14.5)
[2019-05-18 10:10] LABS: ALBUMIN 4.1 gm/dL (3.5-5.0); CALCIUM 9.9 mg/dL (8.4-10.2); CREATININE, serum 1.97 (0.52-1.25); PHOSPHOROUS 3.5 mg/dL (2.5-4.5); POTASSIUM 4.4 mmol/L (3.4-5.0)
--- NOTE | 2019-05-18 11:30 | NUR ---
Pt worked with therapy and states she is in a little pain in her knees, requesting pain medication. Percocet administered per MAY.
[2019-05-18] MEDS ORDERED: MIDAMOR 5MG TAB5 MG PO (11:43)
--- NOTE | 2019-05-18 12:02 | NUR ---
First visit from the lieutenant governor. No needs right now.
--- NOTE | 2019-05-18 13:43 | NUR ---
The patient is to discharge today, 05/17. ZACK met with the patient to review discharge plan and to discuss OT's recommendation of home health and PT's recommendation of post-acute rehab. The patient reports that she feels comfortable returning back home. She states that she would be interested in some home health for continued therapy. ZACK provided the patient with [employer]'s list of home health agencies that serve [place]. The patient chose [facility]. ZACK contacted and faxed a referral to Micheal at [facility]. Micheal reports that they are able to accept the patient for services. ZACK informed the patient. She states that she is also going to be working with [facility] to try and get more private duty hours approved through her insurance. The patient is to discharge back home with her and sister today, 05/17, with home health services for PT/OT/retirement through [facility]. ZACK contacted and faxed the patient's discharge orders to Micheal at [facility]. ZACK also presented and explained the IM form to the patient. The patient verbalized understanding, signed, and she was provided a copy. No additional needs at this time.
--- NOTE | 2019-05-18 14:27 | NUR ---
Pt discharge instructions discussed and reviewed w/ pt who verbalized understanding. All questions answered. No further needs. LWR INT dc'd w/ catheter tip intact and no complications.
--- NOTE | 2019-05-18 16:00 | NUR ---
Pt arrived and pt escorted out via WC by BAYRON Ríos. No further needs
== END 2019-05-18 16:01 | disposition home health service (06) | DRG 641 ==
LOC: MEDICAL 12:16
PROVIDERS: Nurse Practitioner; ADMIT Internal Medicine Nephrology
DX: E87.6 Hypokalemia (principal); I13.0 Hypertensive heart and chronic kidney disease with heart failure and stage 1 through stage 4 chronic kidney disease, or unspecified chronic kidney disease; N18.4 Chronic kidney disease, stage 4 (severe); N25.81 Secondary hyperparathyroidism of renal origin; Z68.41 Body mass index [BMI] 40.0-44.9, adult; E66.9 Obesity, unspecified; J44.9 Chronic obstructive pulmonary disease, unspecified; L89.92 Pressure ulcer of unspecified site, stage 2; E11.22 Type 2 diabetes mellitus with diabetic chronic kidney disease; I25.10 Atherosclerotic heart disease of native coronary artery without angina pectoris; F32.9 Major depressive disorder, single episode, unspecified; F41.9 Anxiety disorder, unspecified; M79.7 Fibromyalgia; M19.90 Unspecified osteoarthritis, unspecified site; E03.9 Hypothyroidism, unspecified; T50.2X5A Adverse effect of carbonic-anhydrase inhibitors, benzothiadiazides and other diuretics, initial encounter; E11.21 Type 2 diabetes mellitus with diabetic nephropathy; K21.9 Gastro-esophageal reflux disease without esophagitis; Z90.49 Acquired absence of other specified parts of digestive tract; Z95.818 Presence of other cardiac implants and grafts; Z87.891 Personal history of nicotine dependence
CPT/HCPCS: J1815

== ENCOUNTER 2019-08-10 13:01 | Emergency (ER) | payer MEDICARE, MEDICAID ==
[~2019-08-10] VITALS: Ht 154.9 cm; Wt 122.7 kg
[~2019-08-10 13:01] MED LIST changes: +CALCITRIOL PO; +KLOR-CON 1010 MEQ PO; +VOLTAREN GEL 1%1 TU TOP
[2019-08-10 13:38] VITALS: TEMP 98.3
[2019-08-10 14:25] LABS: BASO % 0.3 % (0.0-2.0); EOS # 0.1 (0.0-0.7); EOS % 1.8 % (0-4.0); GRAN # 4.9 (1.4-6.5); GRAN % 72.8 % (42.2-75.2); HEMOGLOBIN 12.6 g/dl (12.5-16.0); LYMPH # 1.1 (1.2-3.4); LYMPH % 16.7 % (20.0-51.0); MEAN CELL VOLUME 96 fl (80.0-100.0); MEAN CORPUSCULAR HEMOGLOBIN 32 pg (27.0-31.0); MEAN CORPUSCULAR HGB CONC 33 g/dl (33.0-37.0); MEAN PLATELET VOLUME 10.6 fl (7.4-10.4); MONO # 0.5 (0.1-0.6); MONO % 7.2 % (1.7-9.3); PLATELET COUNT 117 K/mm3 (130-400); RED BLOOD COUNT 3.96 M/mm3 (4.10-5.30); REDCELL DISTRIBUTION WIDTH-CV 13.9 % (11.5-14.5)
[2019-08-10 14:28] LABS: INR 1.1 (0.8-3.0)
[2019-08-10 14:31] LABS: ALBUMIN 3.9 gm/dL (3.5-5.0); CALCIUM 9.1 mg/dL (8.4-10.2); CREATININE, serum 1.45 (0.52-1.25); POTASSIUM 3.6 mmol/L (3.4-5.0); TOTAL PROTEIN 7.1 gm/dL (6.4-8.2)
[2019-08-10] MEDS ORDERED: DOXYCYCLINE 10100 MG PO (14:43)
[2019-08-10] MEDS ORDERED: PREDNISONE20 MG PO ×3 (14:43→14:44)
[2019-08-10 14:44] LABS: TROPONIN-I 0.017 ng/mL (0.000-0.035)
[2019-08-10 14:56] LABS: STREP SCREEN POSITIVE
[2019-08-10] MEDS ORDERED: OMNICEF 300MG300 MG PO (14:58)
[2019-08-10 18:04] VITALS: BP 187/94; PULSE 71
== END 2019-08-10 18:04 | disposition home or self-care (01) ==
LOC: COL.ER 13:01
PROVIDERS: Emergency Medicine
DX: R05 Cough (principal); R06.02 Shortness of breath; R07.89 Other chest pain; I50.9 Heart failure, unspecified; E66.9 Obesity, unspecified; E11.22 Type 2 diabetes mellitus with diabetic chronic kidney disease; N18.9 Chronic kidney disease, unspecified; J44.9 Chronic obstructive pulmonary disease, unspecified; Z87.891 Personal history of nicotine dependence; Z79.82 Long term (current) use of aspirin; Z79.4 Long term (current) use of insulin; Z68.43 Body mass index [BMI] 50.0-59.9, adult
CPT/HCPCS: J0696; J3010; J7030; J7512; Q9967

== ENCOUNTER 2020-09-15 08:48 | Inpatient (IN) | payer MEDICARE, MEDICAID ==
[~2020-09-15] VITALS: Ht 160 cm; Wt 127.0 kg
[~2020-09-15 08:48] MED LIST changes: +DOXYCYCLINE 10100 MG PO; +OMNICEF 300MG300 MG PO
[2020-09-15 10:23] LABS: GRAN % 57.8 % (42.2-75.2); HEMATOCRIT 37.1 % (37.0-47.0); LYMPH % 25.4 % (20.0-51.0); MEAN CELL VOLUME 97 fl (80.0-100.0); MEAN CORPUSCULAR HEMOGLOBIN 32 pg (27.0-31.0); MEAN CORPUSCULAR HGB CONC 32 g/dl (33.0-37.0); MEAN PLATELET VOLUME 10.1 fl (7.4-10.4); PLATELET COUNT 71 K/mm3 (130-400); RED BLOOD COUNT 3.81 M/mm3 (4.10-5.30)
[2020-09-15 10:24] LABS: BASO % 0.5 % (0.0-2.0); EOS % 0.5 % (0-4.0); GRAN # 1.2 (1.4-6.5); LYMPH # 0.5 (1.2-3.4); MONO # 0.3 (0.1-0.6); MONO % 15.3 % (1.7-9.3)
[2020-09-15 10:25] LABS: ALBUMIN 3.7 gm/dL (3.5-5.0); BILIRUBIN,TOTAL 0.6 mg/dL (0.0-1.0); CALCIUM 9.1 mg/dL (8.4-10.2); CREATININE, serum 1.59 (0.52-1.25); POTASSIUM 4.8 mmol/L (3.4-5.0); TOTAL PROTEIN 7.4 gm/dL (6.4-8.2)
[2020-09-15 10:39] LABS: TROPONIN-I 0.054 ng/mL (0.000-0.035)
[2020-09-15] MEDS ORDERED: COZAAR 50MG50 MG/TAB PO (12:30)
[2020-09-15] MEDS ORDERED: NORCO 325 MG-7.1 TAB PO (12:32)
[2020-09-15 14:00] VITALS: BP 184/83; PULSE 85; TEMP 99.1
[2020-09-15 15:05] LABS: C-REACTIVE PROTEIN 3.1 mg/dL (0.0-0.9); MAGNESIUM 1.8 mg/dL (1.6-2.3)
[2020-09-15 15:22] LABS: INR 1.1 (0.8-3.0); PROTHROMBIN TIME 12.7 SECONDS (9.7-12.8)
--- NOTE | 2020-09-15 15:46 | NUR ---
CALL PLACE TO DR CERVANTES, PT D DIMER AND TROPONIN ARE CRITICAL. HE WILL ADJUST PT'S ANTICOAGULANT.
[2020-09-15 15:52] LABS: COLLECTION METHOD CLEAN CATCH
[2020-09-15 16:01] LABS: PH 6 (5-8); SQUAMOUS EPITHELIAL 0-2 /hpf; URINE APPEARANCE Clear; URINE BACTERIA None Seen /hpf; URINE BILIRUBIN Negative (NEGATIVE); URINE BLOOD 1+ (NEGATIVE); URINE COLOR Yellow; URINE GLUCOSE Negative (NEGATIVE); URINE KETONE Negative (NEGATIVE); URINE LEUKOCYTE ESTERASE Negative (NEGATIVE); URINE NITRATE Negative (NEGATIVE); URINE PROTEIN(semi-quant) 1+ (NEGATIVE); URINE RBC 0-2 /hpf; URINE UROBILINOGEN Negative (NEGATIVE)
[2020-09-15 17:01] VITALS: BP 160/80; PULSE 78; TEMP 98.9
--- NOTE | 2020-09-15 18:53 | NUR ---
1500 PT RECEIVED FROM THE ED. NO S/S OF DISTRESS NOTED. O2 PLACED AT 2L VIA NC. PT COMPLAINTS OF BLEEDING FROM THE NOSE. DR CERVANTES AT THE BEDSIDE. PT ASSESSED. CALL-LIGHT IN REACH. BED IN LOW POSITION. BED ALARM ON. WILL CONTINUE TO MONITOR. 1800 PT COMPLAINED OF FEELING LIKE SOMETHING IS IN HER THROAT AND SHE CAN'T SWALLOW. DR CERVANTES MADE. WENT TO ROOM AND PT WAS ABLE TO SWALLOW HER SHERBERT. NO INTERVENTIONS AT THIS TIME
--- NOTE | 2020-09-15 19:10 | NUR ---
Received report from Trae. Patient awake sitting in the recliner. She is requesting for sprite. No other needs noted.
[2020-09-15 19:49] VITALS: BP 159/70; PULSE 65; TEMP 98.1
--- NOTE | 2020-09-15 21:10 | NUR ---
Assisted patient to the bedside commode. Briefs changed. Patient had redness on her breastfold. Left side is more red than the right. INT on right upper arm flushed. She is on O2 at 2lpm via facemask. She wants to go back to bed, assisted patient and repositioned her. Called Lillie BACH to ask for Desenex and for cough syrup as well. Informed her that the patient mentioned that she was able to scoop her mouth using her finger and was able to get a blood clot from the epistaxis that she had awhile ago. Currently patient is not actively bleeding on her nose.
[2020-09-15 23:22] VITALS: BP 152/67; PULSE 63; TEMP 97.6
--- NOTE | 2020-09-16 00:16 | NUR ---
Tried placing SCD on BLE but after few minutes patient complains of being uncomfortable. She said that she has chronic leg pain and the SCD contributes to the pain if she will have to wear it. SCD removed.
[2020-09-16 03:23] VITALS: BP 123/54; PULSE 57; TEMP 97.7
--- NOTE | 2020-09-16 05:55 | NUR ---
Repositioned patient in bed. GLASS FITTER assisted her to bedside commode. She is still on O2 ar 2lpm via oxymask. She denies pain. No episode of epistaxis.
[2020-09-16 07:35] LABS: HEMOGLOBIN 11.3 g/dl (12.5-16.0); MEAN CELL VOLUME 94 fl (80.0-100.0); MEAN CORPUSCULAR HEMOGLOBIN 31 pg (27.0-31.0); MEAN CORPUSCULAR HGB CONC 33 g/dl (33.0-37.0); MEAN PLATELET VOLUME 9.9 fl (7.4-10.4); PLATELET COUNT 56 K/mm3 (130-400); RED BLOOD COUNT 3.66 M/mm3 (4.10-5.30); REDCELL DISTRIBUTION WIDTH-CV 14.4 % (11.5-14.5)
[2020-09-16 07:42] LABS: HEMATOCRIT 34.4 % (37.0-47.0)
[2020-09-16 08:00] VITALS: BP 183/76; PULSE 66; TEMP 97.9
[2020-09-16 08:09] LABS: BAND 1 % (0-10); LYMPHOCYTE 24 % (20.0-51.0); NEUTROPHILS 67 % (42.0-75.2)
[2020-09-16 08:10] LABS: PLATELET ESTIMATE DECREASED (NORMAL)
[2020-09-16 08:11] LABS: SCHISTOCYTES 1+
--- NOTE | 2020-09-16 10:06 | NUR ---
Scheduled medications given. Shift assessment preformed. Patient denies any N/V/D, and is afebrile. Patient currently requiring 2L of O2 via oxymask. BP 183/76, Dr. Valentino notified. Patient C/O aching pain in back rated a 6/10. WBC lab 1.8, Chelsy notified. Patient denies any further needs at this time. Will continue to monitor. Call light in reach.
[2020-09-16 12:00] VITALS: BP 153/66; PULSE 67; TEMP 97.9
--- NOTE | 2020-09-16 13:24 | NUR ---
Sw spoke with pt via phone, due to pt being covid+. The pt informed Sw that she lives at home with her , Robert (ph# [phone]) and her sister as well. Everyone in the home is sick as well. The pt is not independent and needs help with all ADLS and uses a walker & wheelchair. NO DME. The pt PCP is Dr. Serna and gets her medications from [facility] and has no trouble obtaining them. The pt is currently using HH services with [facility] She would like me to faxed over updates to them. The pt is also worried about health insurance not paying for stay after 3 days. The does have a [facility], but does not know where it is. She will speak to her to obtain it. No other needs stated at this time. Sw to await further recommendations and follow up as needed. D/c: Home with HH.
[2020-09-16 16:00] VITALS: BP 164/71
--- NOTE | 2020-09-16 18:00 | NUR ---
Patient has had an eventful day. Patient C/O burning, aching chest pain. Dr. Valentino notified. EKG, ddimer, and Nitro ordered. After the administration of 1 nitro, patient stated that pain was relieved. Patient continues to need 4L of O2 via oxymask. Bed bath given. PRN norco given for knee pain rated a 7/10. VSS. Patient denies any further needs at this time. Will continue to monitor. Call light in reach.
--- NOTE | 2020-09-16 20:00 | NUR ---
Received report from Coty. Patient sitting in the recliner. She denies chest pain right now. She do complain of leg and knee pain. She is on O2 at 1lpm via oxymask. Assisted patient to bedside commode. Breast fold, abdomen and groin is red. Will apply ointment.
[2020-09-16 21:00] VITALS: BP 167/65; PULSE 63; TEMP 98.2
[2020-09-17] VITALS (7 sets, daily range): BP systolic 123–160; BP diastolic 56–71; PULSE 54–71; TEMP 97.6–98
[2020-09-17 07:00] LABS: GRAN % 75.5 % (42.2-75.2); HEMOGLOBIN 10.7 g/dl (12.5-16.0); LYMPH # 0.4 (1.2-3.4); LYMPH % 16.3 % (20.0-51.0); MEAN CELL VOLUME 94 fl (80.0-100.0); MEAN CORPUSCULAR HEMOGLOBIN 31 pg (27.0-31.0); MEAN CORPUSCULAR HGB CONC 33 g/dl (33.0-37.0); MEAN PLATELET VOLUME 8.9 fl (7.4-10.4); MONO # 0.2 (0.1-0.6); MONO % 7.8 % (1.7-9.3); PLATELET COUNT 72 K/mm3 (130-400); RED BLOOD COUNT 3.44 M/mm3 (4.10-5.30); REDCELL DISTRIBUTION WIDTH-CV 14.2 % (11.5-14.5)
[2020-09-17 07:09] LABS: HEMATOCRIT 32.3 % (37.0-47.0)
--- NOTE | 2020-09-17 07:18 | NUR ---
Patient still on O2 at 2lpm via oxymask. Assisted her to bedside commode this morning. She complains of pain and still with cough. Tesmelanie Perlchip and [place] given.
--- NOTE | 2020-09-17 15:36 | NUR ---
PT COMPLAINED OF HAVING CHEST. NITROGLYCERIN REMOVED. WHEN IN THE PT'S ROOM SHE STATES SHE DOES NOT HAVE CHEST PAIN ANYMORE SHE THINGS SHE IS ANXIOUS. CALL PLACED TO PROVIDER AND HE WILL ORDER SOMETHING FOR HER ANXIETY.
--- NOTE | 2020-09-17 18:24 | NUR ---
0700 PT RECEIVED RESTING IN BED TO S/S OF DISTRESS NOTED. OXYGEN IN PLACE AT 1L. CALL-LIGHT IN REACH BED IN LOW POSITION. 0900 PT OFFER HER MEAL AND ATE HALF OF IT. STATES SHE DID NOT LIKE IT AND SNACK WAS OFFERED. MEDICATIONS ADMINISTERED ORDERED. COMFORT MEASURESS IN PLACE. WILL CONTINUE TO MONITOR. 1200 PT ATE HER MEAL. PT COMPLAINS OF THE CHAIR BEING HARD, UNABLE TO WALK HOWEVER SHE WALKS TO THE COMMODE AND STATES SHE IS NOT IN PAIN. PT MADE AWARE THAT STAFF HAS TO DON PROPER PROTECTIVE EQUIPMENTS AND IT WILL TAKE US A FEW MINUTES TO GET INTO HER ROOM DUE TO HER ISOLATION. 1700 MEDICATION FOR ANXIETY ADMINISTERED ORDERED AND SIDE EFFECTS WERE EXPLAINED TO PT. COMFORT MEASURES IN PLACE. WILL CONTINUE TO MONITOR.
[2020-09-18 04:21] VITALS: BP 136/58; PULSE 66
--- NOTE | 2020-09-18 04:22 | NUR ---
Patient got a Clonazepam and [place] before shift change. She is awake and alert at the reclining chair when RN did assessment. RN notice that she is using the simple mask but Oxygen is off. The report was she use 1L for comfort. Her saturation was 95% on room air. She ask help to use the bathroom and she said that she might not need the Oxygen for a little bit just to pee. When she get back to bed she said that she is hardly breathing and she put the oxygen back on and said that she feels better. But actually she is not getting O2. RN gave her Trazodone PRn and since then she was sleeping. Call light is within reach. Continue to monitor.
[2020-09-18 07:29] LABS: GRAN # 1.9 (1.4-6.5); GRAN % 74.9 % (42.2-75.2); HEMOGLOBIN 10.4 g/dl (12.5-16.0); LYMPH # 0.4 (1.2-3.4); LYMPH % 16.1 % (20.0-51.0); MEAN CELL VOLUME 94 fl (80.0-100.0); MEAN CORPUSCULAR HEMOGLOBIN 31 pg (27.0-31.0); MEAN CORPUSCULAR HGB CONC 33 g/dl (33.0-37.0); MEAN PLATELET VOLUME 10.6 fl (7.4-10.4); MONO # 0.2 (0.1-0.6); MONO % 7.8 % (1.7-9.3); PLATELET COUNT 68 K/mm3 (130-400); REDCELL DISTRIBUTION WIDTH-CV 14.3 % (11.5-14.5)
[2020-09-18 07:30] LABS: HEMATOCRIT 31.8 % (37.0-47.0)
[2020-09-18 07:31] LABS: PATHOLOGY DIFF REVIEW OK
[2020-09-18 08:10] VITALS: BP 141/63; PULSE 84; TEMP 97.6
[2020-09-18 10:20] LABS: CALCIUM 8.5 mg/dL (8.4-10.2); CREATININE, serum 1.49 (0.52-1.25); POTASSIUM 4.3 mmol/L (3.4-5.0)
[2020-09-18 11:44] VITALS: BP 150/69; PULSE 64; TEMP 97.7
[2020-09-18 16:29] VITALS: BP 124/65; PULSE 64; TEMP 97.4
--- NOTE | 2020-09-18 17:00 | NUR ---
Pt resting in the room today, No C/O pain during the day, Pt up adlib. No other issues / complaints durting the day, needs met.
[2020-09-18 20:17] VITALS: BP 159/80; PULSE 66; TEMP 98.1
--- NOTE | 2020-09-18 22:13 | NUR ---
Shift assessment completed. Patient sitting up in the chair upon enter the room. Patient requests using bathroom. Patient ambulates with a walke with steady gait. Stand-by assist provided. Patient reports moderate pain to her back and knee area. PRN Doland given per MAY. Patient currently on room air. Patient denies SOB or dyspnea. Breathing even and unlabored. No acute respiratory distress noted. All scheduled meds given per MAY. Ice water provided per request. Call light within reach. Will continue to monitor.
[2020-09-18 23:47] VITALS: BP 117/54; PULSE 54; TEMP 97.6
[2020-09-19 03:56] VITALS: BP 119/62; PULSE 59; TEMP 97.6
[2020-09-19 07:25] LABS: HEMOGLOBIN 10.5 g/dl (12.5-16.0); MEAN CELL VOLUME 92 fl (80.0-100.0); MEAN CORPUSCULAR HEMOGLOBIN 30 pg (27.0-31.0); MEAN CORPUSCULAR HGB CONC 33 g/dl (33.0-37.0); MEAN PLATELET VOLUME 9.8 fl (7.4-10.4); PLATELET COUNT 74 K/mm3 (130-400); RED BLOOD COUNT 3.45 M/mm3 (4.10-5.30); REDCELL DISTRIBUTION WIDTH-CV 14.3 % (11.5-14.5)
[2020-09-19 07:26] LABS: HEMATOCRIT 31.8 % (37.0-47.0)
[2020-09-19 08:25] VITALS: BP 170/80; PULSE 67; TEMP 97.7
--- NOTE | 2020-09-19 09:25 | NUR ---
Pt awake and alert upon entry, sitting in the recliner, no C/O pain at this time. Shift assessments complete, left Pt call light in reach, bed in lowest position.
[2020-09-19 12:06] VITALS: BP 156/78; PULSE 63; TEMP 98
--- NOTE | 2020-09-19 12:53 | NUR ---
PT/OT are recommending home health. ZACK contacted the patient to follow up and review d/c plan. The patient states that she may be able to d/c later today or tomorrow. She reports that she plans on returning home with her and sister and will need home health. She reports that she used to have services through [facility] and would like to use them again, if they can take her with having COVID. ZACK read the IM form outloud to the patient over the phone. The patient verbalized understanding and gave ZACK approval to sign the form on her behalf. ZACK contacted and faxed a referral to Quin at [facility]. Quin reports that they are able to see patient's that are COVID positive. Awaiting screen.
--- NOTE | 2020-09-19 13:23 | NUR ---
Quin, at [facility], reports that they are able to accept the patient for services.
[2020-09-19 17:56] VITALS: BP 149/61; PULSE 64; TEMP 97.4
[2020-09-19 20:40] VITALS: BP 158/61; PULSE 71; TEMP 98
[2020-09-20 00:26] VITALS: BP 133/63; PULSE 58; TEMP 97.5
[2020-09-20 03:41] VITALS: BP 120/58; PULSE 55; TEMP 97.8
--- NOTE | 2020-09-20 05:33 | NUR ---
Resting quietly w/o issue, VS stable, no s/s of hyper/hypoglycemia, telemetry in use, updated on plan of care, verbalalized understanding.
[2020-09-20 06:53] LABS: MEAN CELL VOLUME 93 fl (80.0-100.0); MEAN CORPUSCULAR HGB CONC 33 g/dl (33.0-37.0); MEAN PLATELET VOLUME 10.9 fl (7.4-10.4); PLATELET COUNT 81 K/mm3 (130-400); RED BLOOD COUNT 3.16 M/mm3 (4.10-5.30); REDCELL DISTRIBUTION WIDTH-CV 14.1 % (11.5-14.5)
[2020-09-20 06:56] LABS: HEMATOCRIT 29.4 % (37.0-47.0); HEMOGLOBIN 9.8 g/dl (12.5-16.0); MEAN CORPUSCULAR HEMOGLOBIN 31 pg (27.0-31.0)
[2020-09-20 06:59] LABS: CALCIUM 8.3 mg/dL (8.4-10.2); CREATININE, serum 1.36 (0.52-1.25); MAGNESIUM 2.6 mg/dL (1.6-2.3); POTASSIUM 4.4 mmol/L (3.4-5.0)
[2020-09-20 08:51] VITALS: BP 146/70; PULSE 67; TEMP 98.2
[2020-09-20] MEDS ORDERED: MICATIN TP (09:04)
[2020-09-20] MEDS ORDERED: DECADRON6 MG PO (09:05)
[2020-09-20] MEDS ORDERED: ROBITUSSIN100 MG/5 M PO (09:06)
[2020-09-20] MEDS ORDERED: TESSALON PERLE200 MG PO (09:06)
--- NOTE | 2020-09-20 11:03 | NUR ---
RT notified ZACK that the patient did not qualify for oxygen. SW contacted and updated the patient on [facility] acceptance. The patient is to discharge back home with her family today, 09/20, with home health services for correction/PT/OT from [facility]. ZACK notified and faxed d/c orders to Quin at [facility]. No additional needs at this time.
--- NOTE | 2020-09-20 11:21 | NUR ---
0700 PT RECEIVED AAOX3 SITTING IN THE CHAIR. NO S/S OF DISTRESS NOTED. PT DENIES HAVING PAIN. COMFORT MEASURSES IN PLACE. CALL-LIGHT IN REACH. WILL CONTINUE TO MONITOR. ISOLATION PRECAUTIONS MAINTAINED/ 0900 MEDICATIONS ADMINISTERED ORDERED. PT ON ROOM AIR. PT ATE MOST OF HER MEAL. COUGH MEDICINE ADMINISTERED FOR COUGH. CALL-LIGHT IN REACH. COMFORT MEASURES IN PLACE. WILL CONTINUE TO MONITOR.
[2020-09-20 12:00] VITALS: BP 176/76; PULSE 89; TEMP 98.8
--- NOTE | 2020-09-20 13:13 | NUR ---
PT BEING DISCHARGED AT THIS TIME. NO S/S OF DISTRESS NOTED. DISCHARGE INSTRUCTIONS REVIEWED WITH THE PT. ALL QUESTIONS ANSWERED. IV AND TELE MONITOR REMOVED. PT GATHERED ALL HER BELONGINGS. PT WAITING FOR HERE SPOUSE TO PICK HER UP.
[2020-09-20] MEDS ORDERED: DEMADEX 20MG20 M1 PO (14:43)
== END 2020-09-20 13:24 | disposition home health service (06) | DRG 177 ==
LOC: COL.ER 08:48 → MEDICAL 11:50
PROVIDERS: Emergency Medicine; Internal Medicine
PROC: XW033E5 Introduction of Remdesivir Anti-infective into Peripheral Vein, Percutaneous Approach, New Technology Group 5 (ICD-10-PCS; principal; 2020-09-17)
DX: U07.1 COVID-19 (principal); J96.01 Acute respiratory failure with hypoxia; Z68.42 Body mass index [BMI] 45.0-49.9, adult; D61.818 Other pancytopenia; N17.9 Acute kidney failure, unspecified; I12.9 Hypertensive chronic kidney disease with stage 1 through stage 4 chronic kidney disease, or unspecified chronic kidney disease; E11.22 Type 2 diabetes mellitus with diabetic chronic kidney disease; K21.9 Gastro-esophageal reflux disease without esophagitis; J44.9 Chronic obstructive pulmonary disease, unspecified; E03.9 Hypothyroidism, unspecified; G47.33 Obstructive sleep apnea (adult) (pediatric); B37.9 Candidiasis, unspecified; K59.00 Constipation, unspecified; D69.6 Thrombocytopenia, unspecified; E78.5 Hyperlipidemia, unspecified; M79.7 Fibromyalgia; F41.9 Anxiety disorder, unspecified; I25.10 Atherosclerotic heart disease of native coronary artery without angina pectoris; N18.30 Chronic kidney disease, stage 3 unspecified; F32.9 Major depressive disorder, single episode, unspecified; E66.01 Morbid (severe) obesity due to excess calories; Z87.891 Personal history of nicotine dependence; Z90.49 Acquired absence of other specified parts of digestive tract; Z79.4 Long term (current) use of insulin; Z79.82 Long term (current) use of aspirin
CPT/HCPCS: 99222-AI; 99232-AI; 99239; J1100; J1650; J1815; J7030; J8540